=== PATIENT | female | born 1995 | race Caucasian/White ===

== ENCOUNTER 2021-03-14 03:48 | Inpatient (IN) | payer OTHER ==
[2021-03-14 06:17] LABS: Appearance CLEAR (CLEAR); Bilirubin NEGATIVE (NEGATIVE); Blood NEGATIVE Ery/ul (0-5); Epithelial Cells RARE /HPF (FEW); Glucose NEGATIVE (NEGATIVE); Ketones NEGATIVE (NEGATIVE); Leukocyte Esterase NEGATIVE (NEGATIVE); Nitrite NEGATIVE (NEGATIVE); Protein,Urine Dip NEGATIVE (Negative); Specific Gravity 1.018 (1.005-1.025); Urobilinogen 2 mg/dL (0-1); WBC 0-2 /HPF (0-5)
[2021-03-14 06:33] LABS: Amphetamine,Urine NEGATIVE (NEGATIVE); Barbiturate,Urine NEGATIVE (NEGATIVE); Benzodiazepine,Urine NEGATIVE (NEGATIVE); Cocaine,Urine NEGATIVE (NEGATIVE); Methadone,Urine NEGATIVE (NEGATIVE); Opiate,Urine NEGATIVE (NEGATIVE); PCP,Urine NEGATIVE (NEGATIVE); THC,Urine NEGATIVE (NEGATIVE)
[2021-03-14] MEDS ORDERED: Ephedrine Sulfate 50 MG/ML IV PRN (07:24)
[2021-03-14] MEDS ORDERED: Lactated Ringers 1,000 ML IV ONE ×2 (07:24→14:04)
[2021-03-14] MEDS ORDERED: FENTANYL 2 MCG-BUPIV 0.125%-NS 250 ML Epidur 250 ML EPIDURAL SCH (07:30)
[2021-03-14] MEDS ORDERED: Mylicon 80MG PO PRN (07:31)
[2021-03-14] MEDS ORDERED: NORCO 5/325 MG PO PRN (07:31)
[2021-03-14] MEDS ORDERED: Dermoplast Spray TP PRN (07:31)
[2021-03-14] MEDS ORDERED: TUCKS TP PRN (07:31)
[2021-03-14] MEDS ORDERED: LANSINOH 40 GM TOP PRN (07:31)
[2021-03-14] MEDS ORDERED: XYLOCAINE 1% HCL 20 ML MDV IJ PRN (07:36)
[2021-03-14] MEDS: PITOCIN 30 UNITS/ LR 500 ML 30 UNITS/500 ML PLAST..BAG IV SCH (07:41)
[2021-03-14 07:51] LABS: Absolute Neutrophil Ct (ANC) 9.36 (1.4-6.9); Basophil (Absolute #) 0.02 (0-0.4); Eosinophil % 0.2 % (0.00-5.0); Eosinophil (Absolute #) 0.02 (0-0.5); Hemoglobin 10.5 gm/dl (12.0-16.0); Lymphocyte (Absolute #) 1.29 (1.0-4.6); Lymphocytes % 11.4 % (24.0-44.0); Mean Cell Volume 83.8 fl (78-100); Mean Corpuscular Hemoglobin 26.6 pg (26-32); Mean Corpuscular Hgb Concent. 31.8 g/dl (32-36); Mean Platelet Volume 9.8 fl (7.5-11.0); Monocyte (Absolute #) 0.61 (0.0-1.3); Monocytes % 5.4 % (0.0-12.0); Neutrophil % 82.8 % (36.0-66.0); Platelet Count 228 K/mm3 (150-450); Red Blood Count 3.94 M/mm3 (4.1-5.4); Red Cell Distribution Width 14.5 % (11.5-14.0); White Blood Count 11.3 K/mm3 (4.0-10.5)
[2021-03-14] MEDS ORDERED: Sensorcaine 0.25% 10 ML ONE (09:00)
[2021-03-14 12:36] LABS: Appearance CLEAR (CLEAR); Bilirubin NEGATIVE (NEGATIVE); Blood NEGATIVE Ery/ul (0-5); Glucose NEGATIVE (NEGATIVE); Ketones TRACE (NEGATIVE); Leukocyte Esterase NEGATIVE (NEGATIVE); Mucus SLIGHT /HPF (NEGATIVE); Nitrite NEGATIVE (NEGATIVE); Protein,Urine Dip NEGATIVE (Negative); Specific Gravity 1.023 (1.005-1.025); Urobilinogen NEGATIVE mg/dL (0-1)
[2021-03-14] MEDS: Colace 100 MG PO SCH ×2 (22:21→22:35)
[2021-03-14] MEDS: MOTRIN 400 MG PO PRN (22:36)
[2021-03-15 05:58] LABS: Absolute Neutrophil Ct (ANC) 10.17 (1.4-6.9); Basophil (Absolute #) 0.02 (0-0.4); Eosinophil % 0.2 % (0.00-5.0); Eosinophil (Absolute #) 0.02 (0-0.5); Hematocrit 27.4 % (35-47); Hemoglobin 8.6 gm/dl (12.0-16.0); Lymphocyte (Absolute #) 1.55 (1.0-4.6); Lymphocytes % 12.2 % (24.0-44.0); Mean Cell Volume 84.8 fl (78-100); Mean Corpuscular Hemoglobin 26.6 pg (26-32); Mean Corpuscular Hgb Concent. 31.4 g/dl (32-36); Mean Platelet Volume 9.9 fl (7.5-11.0); Monocyte (Absolute #) 0.96 (0.0-1.3); Monocytes % 7.5 % (0.0-12.0); Neutrophil % 79.9 % (36.0-66.0); Platelet Count 222 K/mm3 (150-450); Red Blood Count 3.23 M/mm3 (4.1-5.4); Red Cell Distribution Width 14.7 % (11.5-14.0); White Blood Count 12.7 K/mm3 (4.0-10.5)
--- NOTE | 2021-03-15 09:02 | PCM.NOTE ---
Date and Time: 03/15/21 0900 Subjective Assessment: PPD 1 SP PT RESTING IN BED AND DOING WELL VSS AFEBRILE ABD; SOFT UTERUS; FIRM LOCHIA; MILD HGB; 8.6 A/P SP PPD 1 ANTICIPATE DISCHARGE TOMORROW OBJECTIVE DATA Vital Signs: Vital Signs - 24 hr Temp Pulse Resp BP BP 03/15/21 08:19 98.1 F 85 18 99/57 03/15/21 03:30 98.3 F 76 18 106/59 03/14/21 20:15 98.4 F 111 H 18 120/68 03/14/21 17:00 104 H 03/14/21 16:00 104 H 102/59 03/14/21 15:45 101 H 20 107/59 03/14/21 15:30 80 22 113/63 03/14/21 15:15 20 03/14/21 15:00 89 20 124/68 03/14/21 14:00 118 H 20 131/87 03/14/21 13:00 72 20 133/70 03/14/21 12:30 75 20 118/78 03/14/21 12:00 70 20 03/14/21 11:00 69 20 126/75 03/14/21 10:00 78 20 129/79 129/79 Pain Assessment - Last Documented Pain Intensity [Anterior] 3 Pain Intensity 3 Pain Scale Used 0-10 Pain Scale Intake and Output: Intake & Output 03/12/21 03/13/21 03/14/21 03/15/21 11:59 11:59 11:59 11:59 Intake Total 550 Output Total 300 Balance 250 Weight 90.718 kg Lab Results: Lab Results-Last 24 Hours 03/14/21 03/15/21 Range/Units 12:18 05:49 WBC 12.7 H (4.0-10.5) K/mm3 RBC 3.23 L (4.1-5.4) M/mm3 Hgb 8.6 L (12.0-16.0) gm/dl Hct 27.4 L (35-47) % MCV 84.8 (78-100) fl MCH 26.6 (26-32) pg MCHC 31.4 L (32-36) g/dl RDW 14.7 H (11.5-14.0) % Plt Count 222 (150-450) K/mm3 MPV 9.9 (7.5-11.0) fl Gran % 79.9 H (36.0-66.0) % Eos # (Auto) 0.02 (0-0.5) Absolute Lymphs (auto) 1.55 (1.0-4.6) Absolute Monos (auto) 0.96 (0.0-1.3) Lymphocytes % 12.2 L (24.0-44.0) % Monocytes % 7.5 (0.0-12.0) % Eosinophils % 0.2 (0.00-5.0) % Basophils % 0.2 (0.0-0.4) % Absolute Granulocytes 10.17 H (1.4-6.9) Basophils # 0.02 (0-0.4) Urine Color YELLOW (YELLOW) Urine Appearance CLEAR (CLEAR) Urine pH 7.0 (5-6) Ur Specific [place] 1.023 (1.005-1.025) Urine Protein NEGATIVE (Negative) Urine Ketones TRACE (NEGATIVE) Urine Blood NEGATIVE (0-5) Ant/ul Urine Nitrite NEGATIVE (NEGATIVE) Urine Bilirubin NEGATIVE (NEGATIVE) Urine Urobilinogen NEGATIVE (0-1) mg/dL Ur Leukocyte Esterase NEGATIVE (NEGATIVE) Urine WBC (Auto) NONE (0-5) /HPF Urine RBC (Auto) NONE (0-2) /HPF U Epithel Cells (Auto) NONE (FEW) /HPF Urine Bacteria (Auto) NONE (NEGATIVE) /HPF Urine Mucus (Auto) SLIGHT (NEGATIVE) /HPF Urine Culture Reflexed NO (NO) Urine Glucose NEGATIVE (NEGATIVE) mg/dL Assessment/Plan (1) Vaginal delivery Current Visit: Yes Status: Acute Code(s): O80 - ENCOUNTER FOR FULL-TERM UNCOMPLICATED DELIVERY
[2021-03-15] MEDS: Colace 100 MG PO SCH ×2 (10:26→20:33)
[2021-03-15] MEDS: TYLENOL EXTRA STRENGTH 500 MG PO PRN ×2 (10:26→20:33)
[2021-03-15] MEDS: FERREX 150 PO SCH (10:26)
[2021-03-15] MEDS: PITOCIN 30 UNITS/ LR 500 ML 30 UNITS/500 ML PLAST..BAG IV SCH (20:22)
--- NOTE | 2021-03-16 08:04 | PCM.NOTE ---
Date and Time: 03/16/21802 Subjective Assessment: ppd 2 pt resting in bed and doing well able to ambulate and tolerate diet vss afebrile abd; soft uterus; firm lochia; mild hgb; 8.6 a/p sp ppd 2 dc home today fu office 3 wks OBJECTIVE DATA Vital Signs: Vital Signs - 24 hr Temp Pulse Resp BP 03/16/21 02:18 98.5 F 98 H 18 102/67 03/15/21 21:00 98.2 F 85 18 117/58 03/15/21 15:00 87 18 103/63 03/15/21 08:19 98.1 F 85 18 99/57 Pain Assessment - Last Documented Pain Intensity [Anterior] 3 Pain Intensity 3 Pain Scale Used 0-10 Pain Scale Intake and Output: Intake & Output 03/13/21 03/14/21 03/15/21 03/16/21 11:59 11:59 11:59 11:59 Intake Total 550 Output Total 300 Balance 250 Weight 90.718 kg Assessment/Plan (1) Vaginal delivery Current Visit: Yes Status: Acute Code(s): O80 - ENCOUNTER FOR FULL-TERM UNCOMPLICATED DELIVERY
--- NOTE | 2021-03-16 08:06 | PCM.DS ---
Discharge Summary Date of Admission: 03/14/21 07:18 Admitting Physician: WHITNEY HADLEY DO Consults: Consults on Case 03/15/21 00:25 Navigation ONCE Primary Care Provider: TERRENCE WALLS Allergies Allergies No Known Drug Allergies Allergy (Verified 03/14/21 05:36) Hospital Summary - Hospital Course Hospital Course: pt admitted on mar 15 for being in labor and delivered live baby boy via without complication. during period did well and now stable for discharge. all questions answered to her satisfaction and was advised to fu in office in 3 wks for evaluation. pt was noted to having hgb at 8.6 and was advised to continue vitamins with iron supplementation. - Vitals & Intake/Output Vital Signs: Vital Signs Temperature 98.5 F 03/16/21 02:18 Pulse Rate 98 H 03/16/21 02:18 Respiratory Rate 18 03/16/21 02:18 Blood Pressure 102/67 03/16/21 02:18 O2 Sat by Pulse Oximetry Intake & Output: Intake & Output 03/13/21 03/14/21 03/15/21 03/16/21 11:59 11:59 11:59 11:59 Intake Total 550 Output Total 300 Balance 250 Weight 90.718 kg - Lab Result Diagrams: 03/15/21 05:49 Micro Results-Entire Visit: Microbiology 03/14/21 12:33 Urine Culture - Final Catherized NO GROWTH Final Diagnosis/Problem List - Final Discharge Diagnosis/Problem (1) Vaginal delivery Current Visit: Yes Status: Acute Code(s): O80 - ENCOUNTER FOR FULL-TERM UNCOMPLICATED DELIVERY - Discharge Disposition: Home, Self-Care Condition: Stable Prescriptions: No Action Metformin HCl [Metformin HCl ER] 750 mg PO DAILY Follow up with: TERRENCE WALLS NP [Primary Care Provider] - WHITNEY HADLEY DO [ACTIVE STAFF] - 3 weeks (no heavy lifting should fu in office in 3 wks should continue vitamins with iron supplementation for 30 days)
[2021-03-16 08:41] LABS: HBsAg Screen Negative (Negative)
[2021-03-16] MEDS: Colace 100 MG PO SCH (09:16)
[2021-03-16] MEDS: FERREX 150 PO SCH (09:16)
[2021-03-16] MEDS: MOTRIN 400 MG PO PRN (09:16)
[2021-03-16 09:36] VITALS: BP 136/72; PULSE 96
== END 2021-03-16 16:00 | disposition home or self-care (01) | DRG 807 ==
LOC: OB 03:48 → OBSVTOIN 07:18
PROVIDERS: ADMIT Obstetrics & Gynecology; ATTEND Obstetrics & Gynecology
PROC: 10E0XZZ Delivery of Products of Conception, External Approach (ICD-10-PCS; principal; 2021-03-15)
PROC: 0KQM0ZZ Repair Perineum Muscle, Open Approach (ICD-10-PCS; 2021-03-15)
DX: O70.1 Second degree perineal laceration during delivery (principal); Z37.0 Single live birth; Z3A.38 38 weeks gestation of pregnancy
CPT/HCPCS: 36415; 59025; 76816; 80307; 81001; 84112; 85025; 87086; 87340; G0378; J2590; A9270-GY